=== PATIENT | male | born 1945 | race Caucasian/White ===

== ENCOUNTER → 2016-09-02 | Outpatient (CLI) | payer OTHER ==
--- NOTE | 2016-09-02 22:02 | REP ---
Clinical: Trauma. Open wound. Technique: AP, lateral, bilateral oblique views of the right first digit. Findings: Soft tissue laceration overlying the distal aspect of the fifth digit along with underlying fractures to the terminal tuft. Age-related changes at the interphalangeal joints noted. Impression: Soft tissue injury/laceration overlies the distal phalanx with small fracture fragments involving the terminal tuft. Signed by Jeronimo Ferreira MD 09/02/2016 09:54 P
== END ==
LOC: M WUC 11:58
PROVIDERS: ATTEND Physician Assistant
DX: S62.666A Nondisplaced fracture of distal phalanx of right little finger, initial encounter for closed fracture (principal); S61.216A Laceration without foreign body of right little finger without damage to nail, initial encounter; X58.XXXA Exposure to other specified factors, initial encounter; Y92.9 Unspecified place or not applicable; Y93.9 Activity, unspecified